=== PATIENT | female | born 1975 | race Native Hawaiian/Other Pacific Islander ===

== ENCOUNTER 2016-12-01 10:57 | Emergency (ER) | payer OTHER ==
[~2016-12-01] VITALS: Ht 165.1 cm; Wt 108.0 kg
[2016-12-01 13:40] VITALS: BP 129/85; TEMP 97.8
== END 2016-12-01 13:40 | disposition home or self-care (01) ==
LOC: ED 10:57
DX: S93.601A Unspecified sprain of right foot, initial encounter (principal); S90.31XA Contusion of right foot, initial encounter; W10.9XXA Fall (on) (from) unspecified stairs and steps, initial encounter; Y92.098 Other place in other non-institutional residence as the place of occurrence of the external cause
CPT/HCPCS: 99282

== ENCOUNTER → 2017-04-08 20:38 | Outpatient (CLI) | payer OTHER | END | disposition home or self-care (01) | LOC: AMB 20:38 | DX: R07.89 Other chest pain (principal) ==

== ENCOUNTER 2017-07-03 14:53 | Emergency (ER) | payer OTHER ==
[~2017-07-03] VITALS: Ht 165.1 cm; Wt 78.0 kg
[2017-07-03 15:00] VITALS: TEMP 98
[2017-07-03 15:29] LABS: PLATELET COUNT 280 K/uL (152-353)
[2017-07-03 15:32] LABS: POTASSIUM 3.5 mmol/L (3.6-5.2)
[2017-07-03 16:34] VITALS: BP 1135/90
== END 2017-07-03 16:39 | disposition home or self-care (01) ==
LOC: ED 14:53
DX: K52.89 Other specified noninfective gastroenteritis and colitis (principal); I10 Essential (primary) hypertension
CPT/HCPCS: 36415; 80053; 84443; 85027; 96365; 96375; 99284; J2405

== ENCOUNTER 2019-04-13 08:01 | Emergency (ER) | payer OTHER ==
[~2019-04-13] VITALS: Ht 165.1 cm; Wt 86.2 kg
[2019-04-13 08:16] VITALS: TEMP 98.1
[2019-04-13 08:47] LABS: PLATELET COUNT 196 K/uL (152-353)
[2019-04-13 08:56] LABS: SODIUM 142 mmol/L (136-145)
[2019-04-13 11:49] VITALS: BP 157/89
== END 2019-04-13 11:50 | disposition home or self-care (01) ==
LOC: ED 08:01
PROVIDERS: Family Medicine
DX: R07.89 Other chest pain (principal); E87.6 Hypokalemia; R51 Headache; I10 Essential (primary) hypertension
CPT/HCPCS: 36415; 80053; 81000; 82550; 84484; 85027; 87086; 87088; 93005; 99283

== ENCOUNTER 2019-06-11 09:33 | Emergency (ER) | payer OTHER ==
[~2019-06-11] VITALS: Ht 165.1 cm; Wt 86.2 kg
[2019-06-11] MEDS ORDERED: LIPITOR20 MG PO (10:01)
[2019-06-11] MEDS ORDERED: EQL ASPIRIN325 M1 PO (10:01)
[2019-06-11] MEDS ORDERED: SEROQUEL200 MG PO (10:02)
[2019-06-11] MEDS ORDERED: AMIT25TA22 PO (10:03)
[2019-06-11] MEDS ORDERED: GABA300C2 PO (10:04)
[2019-06-11] MEDS ORDERED: EUTHYROX50 MCG PO (10:04)
[2019-06-11] MEDS ORDERED: DICL75TA4 PO (10:05)
[2019-06-11] MEDS ORDERED: METO50TA27 PO (10:05)
[2019-06-11] MEDS ORDERED: ROBAXIN500 M1 PO (10:06)
[2019-06-11] MEDS ORDERED: ZESTRIL40 MG PO (10:06)
[2019-06-11] MEDS ORDERED: CVS OMEPRAZOLE20 MG PO (10:07)
[2019-06-11 10:18] LABS: PLATELET COUNT 226 K/uL (152-353)
[2019-06-11 10:26] LABS: POTASSIUM 3.8 mmol/L (3.6-5.2); SODIUM 143 mmol/L (136-145)
[2019-06-11 11:55] VITALS: BP 138/89; TEMP 97.9
== END 2019-06-11 11:56 | disposition home or self-care (01) ==
LOC: ED 09:33
PROVIDERS: Emergency Medicine
DX: I10 Essential (primary) hypertension (principal); R06.02 Shortness of breath
CPT/HCPCS: 80053; 82550; 82553; 83880; 84484; 85027; 93005; 94664; 96374; 99284; J2930